=== PATIENT | female | born 1985 | race African-American/Black ===

== ENCOUNTER 2020-07-09 07:27 | Outpatient (REF) | payer OTHER, SELFPAY | END 2020-07-09 07:28 | disposition home or self-care (01) | LOC: HO.LAB 07:27 | PROVIDERS: Visit Provider Internal Medicine | DX: Z20.828 Contact with and (suspected) exposure to other viral communicable diseases (principal) | CPT/HCPCS: 87635 ==

== ENCOUNTER 2020-08-12 09:49 | Outpatient (REF) | payer OTHER, SELFPAY | END 2020-08-12 09:50 | disposition home or self-care (01) | LOC: HO.LAB 09:49 | PROVIDERS: Visit Provider Internal Medicine | DX: Z20.828 Contact with and (suspected) exposure to other viral communicable diseases (principal) | CPT/HCPCS: C9803; U0003 ==

== ENCOUNTER 2020-12-19 07:40 | Outpatient (REF) | payer OTHER, SELFPAY ==
[2020-12-19 10:30] LABS: SARS COV2 PCR INHOUSE NEGATIVE (Negative)
== END 2020-12-19 07:41 | disposition home or self-care (01) ==
LOC: HO.LAB 07:40
PROVIDERS: Visit Provider Internal Medicine
DX: Z20.822 Contact with and (suspected) exposure to COVID-19 (principal)
CPT/HCPCS: C9803; U0003

== ENCOUNTER 2021-07-13 09:03 | Outpatient (RCR) | payer OTHER, SELFPAY | END 2021-07-13 09:03 | disposition home or self-care (01) | LOC: HO.PHPA 09:03 | PROVIDERS: Visit Provider Psychiatry & Neurology Psychiatry | DX: F43.10 Post-traumatic stress disorder, unspecified (principal) ==